=== PATIENT | male | born 1990 | race Two or more races ===

== ENCOUNTER 2025-06-23 18:01 | Emergency (ER) | payer MEDICAID, OTHER ==
[~2025-06-23] VITALS: Ht 188 cm; Wt 97.5 kg
[2025-06-23] MEDS ORDERED: CALCIUM CHLOR(10%) 100MG/ML 10ML SYRINGE IV ONE (18:02)
[2025-06-23] MEDS ORDERED: SODIUM BICARB 8.4% 50Meq/50ml SYR INJ IV ONE (18:02)
[2025-06-23] MEDS ORDERED: EPINEPHrine HCL 1 MG/10 ML SYRG IV ONE (18:02)
[2025-06-23 18:03] VITALS: PULSE 64; RESP 16
[2025-06-23] MEDS ORDERED: PROPOFOL 100 ML IV ONE (18:14)
[2025-06-23] MEDS: NOREPINEPHRINE 8 MG/250ML KIT 250 ML IV SCH (18:15)
[2025-06-23] MEDS ORDERED: SODIUM CHLORIDE 0.9% 1,000 ML IVB ONE (18:15)
[2025-06-23] MEDS ORDERED: PANTOPRAZOLE 40 MG/10 ML VIAL INJ IV ONE (18:15)
[2025-06-23] MEDS ORDERED: PANTOPRAZOLE 40mg/50ML NS AE 50 ML IV ONE (18:15)
[2025-06-23] MEDS ORDERED: PROPOFOL 100 ML IV SCH (18:15)
--- NOTE | 2025-06-23 18:17 | ED.PDOC ---
CPR-HPI HPI Comments 35-year-old male came to ER via EMS in cardiac arrest. Per EMS patient has seen normal by family members 20 minutes prior to their arrival. Patient was found unresponsive lying on the bedroom floor, covered with coffee-ground emesis. Patient unresponsive in asystole the entire time. Patient was given 4 rounds of epinephrine, IO fluids, CPR initiated and rushed to the ER. Family members were poor informants and no medical history could be obtained. Chief Complaint: CPR Time Seen by MD: 18:16 Reviewed Notes: Trimming Department Blocker Notes Allergies: Coded Allergies: UNOBTAINABLE (Unverified , 06/23/25) Information Source: Emergency Med Personnel Mode of Arrival: EMS Timing: Minutes Duration: Down time prior EMS: (20 minutes) Past Medical History PAST MEDICAL HISTORY: Unobtainable Surgical History: Unobtainable Family History Family History: Unobtainable Social History Smoker: Unobtainable Alcohol: Unobtainable Drugs: Unobtainable Lives In: Home Unable to Obtain due to: Medical Urgency Physical Exam General Appearance: Severe Distress, Other (Patient jaundiced) HEENT: Head (nl), Other (pupils fixed and dilated) Neck: Non-Tender, Supple Respiratory: Crackles, Other (no spontaneous respirations) Cardiovascular: Other (no palpable pulses, no auscultated pulses) Breast Exam: None Gastrointestinal: Soft, Other (obese) Genitalia: Normal Pelvic: None Rectal: Black stool, Other (black vomit) Extremities: Other (cool, dry) Neurologic: None, Other (no gag reflex, no blink reflex) Cerebellar Function: Other, NOT DONE Reflexes: None Skin: Dry, Other (cool) Lymphatic: NOT DONE Was a procedure done? Was a procedure done?: Yes Sedation Sedation?: Yes Informed consent obtained: Yes Sedation start time: 18:10 Sedation end time: 19:23 Sedation total time: 1 hour Central Line Recorder of insertion practice: Observer Occupation of grounding engineer: Attending Physician Indication: Hypotension, Volume resuscitation, Inability to obtain IV, Suspected infection Room prepared for procedure: Yes Spring Forger performed hand hygien: Yes Maximal sterile barrier precau: Mask/Eye shield, Sterile gown, Cap, Sterlie gloves, Large sterlie drape Skin Preparation: Providine iodine Skin preparation completely dr: Yes Insertion site: Right, Internal jugular Central line catheter type: Tunneled- not dialysis Number of lumens: 3 Central line exchanged over a: Yes Antiseptic ointment applied to: Yes Post Assessment: Chest X-Ray Informed consent obtained: No Risks/benefits/alt described: No Intubation Indication: Airway Protection Prep: Preoxygenation Pretreated with: Nothing Medicated with: Nothing Intubation Approach: Orotracheal Intubation size: cm (7.5) Informed consent obtained: No Risks/benefits/alt described: No Differential Dx CPR Differential Diagnosis: Cardiopulmonary arrest, Cardiac Tamponade, Cardiogenic shock, Dysrhythmia, Electrolyte disorder, Heart Block, Myocardial Infarction, Pneumothorax, Pulmonary Embolus, Respiratory Failure, Ruptured Aortic Aneurysm, Other (GI bleed) X-Ray, Labs, Meds, VS Vital Signs Date Time Temp Pulse Resp B/P (MAP) Pulse Ox O2 Delivery O2 Flow Rate FiO2 06/23/25 20:00 Ambu-Bag 06/23/25 19:00 52 18 79/37 (51) 0 06/23/25 19:00 79/37 06/23/25 19:00 79/37 06/23/25 18:54 93.2 70 24 46/24 92 60.0 100 93.2 06/23/25 18:45 63 14 74/29 (44) 0 06/23/25 18:33 70 24 46/24 (31) 96 100 06/23/25 18:33 75/48 06/23/25 18:30 53 21 66/44 (51) 0 06/23/25 18:15 51/29 06/23/25 18:15 93.2 93.2 06/23/25 18:11 77 06/23/25 18:08 93.6 64 0 151/109 (123) 0 93.6 06/23/25 18:03 64 16 Mechanical Ventilator+ 100 100 Lab Test 06/23/25 19:14 06/23/25 18:10 Range/Units Troponin I High Sensitivity 31 44 </=54 ng/L White Blood Count 40.9 *H 4.4-10.8 10^3/uL Red Blood Count 2.76 L 4.5-5.90 10^6/uL Hemoglobin 8.7 L 13.5-17.5 g/dL Hematocrit 30.9 L 41.0-53.0 % Mean Corpuscular Volume 111.8 H 80.0-100.0 fL Mean Corpuscular Hemoglobin 31.3 28.0-32.0 pg Mean Corpuscular Hemoglobin Concent 28.0 L 32.0-36.0 g/dL Red Cell Distribution Width 22.7 H 11.8-14.3 % Platelet Count 75 L 140-450 10^3/uL Mean Platelet Volume 10.6 6.9-10.8 fL Neutrophils (%) (Auto) 37.0-80.0 % Lymphocytes (%) (Auto) 10.0-50.0 % Monocytes (%) (Auto) 0.0-12.0 % Basophils (%) (Auto) 0.0-2.0 % Neutrophils # (Auto) 1.6-8.6 10 ^3/uL Lymphocytes # (Auto) 0.4-5.4 10 ^3/uL Monocytes # (Auto) 0-1.3 10 ^3/uL Differential Total Cells Counted 100.0 100 Neutrophils % (Manual) 32 L 37.0-80.0 Band Neutrophils % (Manual) 35 Lymphocytes % (Manual) 16 10.0-50.0 Monocytes % (Manual) 6 0-12 Eosinophils % (Manual) 3 0-7 Basophils % (Manual) 0 0.0-2.0 Metamyelocytes % (manual) 5 Myelocytes % (Manual) 3 Promyelocytes % (Manual) 0 Blast Cells % (Manual) 0 Nucleated Red Blood Cells 2.0 % Reactive Lymphocytes 0 Platelet Estimate Decrea Large Platelets Few Polychromasia Slight Anisocytosis (manual) Slight Macrocytosis Moderate Darlin Cells Moderate Schistocytes Few Prothrombin Time 45.6 H 9.3-11.8 sec Prothrombin Time INR 5.05 *H 0.9-1.15 Activated Partial Thromboplast Time > 139.0 *H 24.5-34.5 SEC Sodium Level 114 *L 136-145 mmol/L Potassium Level 6.9 *H 3.5-5.1 mmol/L Chloride Level 81 L 98-107 mmol/L Carbon Dioxide Level < 10 *L 20-31 mmol/L Anion Gap 23.12606 H 5-15 Blood Urea Nitrogen 58 H 9-23 mg/dL Creatinine 3.73 H 0.700-1.30 mg/dL Glomerular Filtration Rate Calc 21 >90 mL/min BUN/Creatinine Ratio 15.5 10.0-20.0 Serum Glucose 212 H 74-106 mg/dL Lactic Acid Level 21.5 *H 0.4-2.0 mmol/L Calcium Level 7.4 L 8.7-10.4 mg/dL Total Bilirubin 10.3 H 0.2-1.0 mg/dL Aspartate Amino Transferase (AST) 649 H 13-40 U/L Alanine Aminotransferase (ALT) 133 H 7-40 U/L Alkaline Phosphatase 428 H 46-116 U/L Total Protein 4.5 L 5.7-8.2 g/dL Albumin 1.7 L 3.2-4.8 g/dL Lipase 183 H 12-53 U/L Current Medications Medications (Trade) Dose Ordered Sig/Lida Route Start Time Stop Time Status Last Admin Midazolam HCl 100 ml @ 1 mls/hr Q24H IV 06/23/25 20:00 06/23/25 18:33 Norepinephrine Bitartrate 250 ml @ 3.75 mls/hr Q24H IV 06/23/25 20:00 06/23/25 18:15 Time of 1ST Reevaluation: 18:12 Reevaluation 1ST: Unchanged Patient Education/Counseling: Pt Unresponsive Family Education/Counseling: No Family Present SEPSIS Sepsis Screen Physician Orders Troponin-I Hs (06/24/25 00:00) Troponin-I Hs (06/24/25 03:00) Troponin-I Hs (06/24/25 06:00) Blood Culture (06/23/25 18:10) Electrocardigram (06/23/25 18:10) Pantoprazole 40mg/50ml Ns Ae (Protonix) (06/23/25 18:15) Propofol (Diprivan) (06/23/25 18:15) Rass Sedation Scale Q1HR (06/23/25 18:13) Ventilator Orders (06/23/25 18:19) Respiratory Culture W/ Gs (06/23/25 18:19) Abg W/ Co-Ox (06/23/25 19:30) Epinephrine Hcl (06/23/25 19:15) Sodium Chloride 0.9% (06/23/25 19:15) Piperacillin-Tazob 3.375gm (Zosyn 3.375g (06/23/25 19:15) Epinephrine Hcl (06/23/25 19:13) Midazolam Drip 100 Mg/100ml Ns (Versed D (06/23/25 20:00) Norepinephrine 8 Mg/250ml Kit (Levophed) (06/23/25 20:00) Communication Order (06/23/25 19:54) Insert Johnson Catheter QSHIFT (06/23/25 20:04) Ngt/Ogt (06/23/25 ) Atropine Adult Syr 0.1mg/Ml (Atropine Dawkins (06/23/25 20:15) Vital Signs Date Time Temp Pulse Resp B/P (MAP) Pulse Ox O2 Delivery O2 Flow Rate FiO2 06/23/25 20:00 Ambu-Bag 06/23/25 19:00 52 18 79/37 (51) 0 06/23/25 19:00 79/37 06/23/25 19:00 79/37 06/23/25 18:54 93.2 70 24 46/24 92 60.0 100 93.2 06/23/25 18:45 63 14 74/29 (44) 0 06/23/25 18:33 70 24 46/24 (31) 96 100 06/23/25 18:33 75/48 06/23/25 18:30 53 21 66/44 (51) 0 06/23/25 18:15 51/29 06/23/25 18:15 93.2 93.2 06/23/25 18:11 77 06/23/25 18:08 93.6 64 0 151/109 (123) 0 93.6 06/23/25 18:03 64 16 Mechanical Ventilator+ 100 100 Laboratory Tests Test 06/23/25 18:10 Lactic Acid Level 21.5 mmol/L (0.4-2.0) *H White Blood Count 40.9 10^3/uL (4.4-10.8) *H Medications Medications Dose Ordered Sig/Lida Route Start Time Stop Time Status Last Admin Dose Admin Midazolam HCl 100 ml @ 1 mls/hr Q24H IV 06/23/25 20:00 06/23/25 18:33 Norepinephrine Bitartrate 250 ml @ 3.75 mls/hr Q24H IV 06/23/25 20:00 06/23/25 18:15 Departure 1 Departure Time of Disposition: 19:23 Impression: Primary Impression: Cardiopulmonary arrest Additional Impression: GI bleed Disposition: 20 Condition: Other () Comments Patient was intubated on arrival. CPR in progress. CPR continued. Given ACLS medications. Patient achieved return of spontaneous circulation for about an hour. I placed a triple lumen central line, started pressors, ordered IV blood transfusion and IV antibiotics and IV protonix drip. Patient lost pulses again. CPR and ACLS measures unsuccessful. patient was declared at 1922 according to the wishes of the family at bedside. Critical Care Note Critical Care Time?: Yes (35 min-critical care time only) Critical care comment: Total critical care time: Approximately 46 minutes Due to a high probability of clinically significant, life threatening deterioration, the patient required my highest level of preparedness to intervene emergently and I personally spent this critical care time directly and personally managing the patient. This critical care time included obtaining a history; examining the patient; pulse oximetry; ordering and review of studies; arranging urgent treatment with development of a management plan; evaluation of patient's response to treatment; frequent reassessment; and, discussions with other providers. This critical care time was performed to assess and manage the high probability of imminent, life-threatening deterioration that could result in multi-organ failure. It was exclusive of separately billable procedures and treating other patients. Heart Score Heart Score: Heart Score Response (Comments) Value History N/A 0 EKG N/A 0 Age N/A 0 Risk Factors N/A 0 Troponin N/A 0 Total 0 Stability Stability form required: No I personally scribed for GABRIELA PAYAN MD (AMY) on 06/23/25 at 18:17. Electronically submitted by Federico German (DEE DEE). I personally scribed for GABRIELA PAYAN MD (AMY) on 06/23/25 at 18:41. Electronically submitted by Federico German (DEE DEE). GABRIELA PAYAN MD Jun 23, 2025 18:17
[2025-06-23] MEDS ORDERED: NOREPINEPHRINE 8 MG/250ML KIT 250 ML IV ONE (18:18)
[2025-06-23] MEDS: ATROPINE SULF 1 MG/10ml SYR IV ONE (18:20)
[2025-06-23] MEDS ORDERED: MIDAZOLAM DRIP 100 mg/100mL NS 100 ML IV ONE (18:21)
[2025-06-23 18:33] LABS: Hemoglobin 8.7 g/dL (13.5-17.5)
[2025-06-23] MEDS: MIDAZOLAM DRIP 100 mg/100mL NS 100 ML IV SCH (18:33)
[2025-06-23 18:35] LABS: Hematocrit 30.9 % (41.0-53.0); Mean Corpuscular Hemoglobin 31.3 pg (28.0-32.0); Mean Corpuscular Volume 111.8 fL (80.0-100.0)
[2025-06-23 18:50] LABS: Anion Gap 23.00001 (5-15)
[2025-06-23 18:54] VITALS: BP 46/24; PULSE 70; RESP 24; TEMP 93.2; O2SAT 92
[2025-06-23 19:00] VITALS: BP 79/37; PULSE 52; RESP 18; O2SAT 0
[2025-06-23 19:00] LABS: BUN/Creatinine Ratio 15.5 (10.0-20.0)
[2025-06-23 19:03] LABS: Alanine Aminotransferase 133 U/L (7-40); Albumin 1.7 g/dL (3.2-4.8); Alkaline Phosphatase 428 U/L (46-116); Bilirubin, Total 10.3 mg/dL (0.2-1.0); Blood Urea Nitrogen 58 mg/dL (9-23); Calcium 7.4 mg/dL (8.7-10.4); Chloride 81 mmol/L (98-107); Glucose 212 mg/dL (74-106); Lipase 183 U/L (12-53)
[2025-06-23 19:04] LABS: Carbon Dioxide < 10 mmol/L (20-31); Potassium 6.9 mmol/L (3.5-5.1); Sodium 114 mmol/L (136-145)
[2025-06-23 19:05] LABS: Total Protein 4.5 g/dL (5.7-8.2)
[2025-06-23 19:06] LABS: Lactic Acid w/Reflex 21.5 mmol/L (0.4-2.0)
[2025-06-23] MEDS ORDERED: EPINEPHrine HCL 1 MG/10 ML SYRG ONE (19:12)
[2025-06-23 19:13] LABS: Macrocytosis Moderate; Nucleated Red Blood Cells % 2.0 %; Total Cells Counted 100.0 (100)
[2025-06-23] MEDS ORDERED: EPINEPHrine HCL 250 ML IV ONE ×2 (19:13→19:15)
[2025-06-23 19:14] LABS: Anisocytosis Slight; Polychromasia Slight
[2025-06-23] MEDS ORDERED: PIPERACILLIN-TAZOB 3.375GM 100 ML IV ONE (19:15)
[2025-06-23] MEDS ORDERED: EPINEPHrine HCL 250 ML IV SCH (19:15)
[2025-06-23] MEDS ORDERED: SODIUM CHLORIDE 0.9% 2,450 ML IV ONE (19:15)
[2025-06-23 19:50] LABS: Prothrombin Time 45.6 sec (9.3-11.8)
[2025-06-23 19:59] LABS: INR 5.05 (0.9-1.15); Partial Thromboplastin Time > 139.0 SEC (24.5-34.5)
--- NOTE | 2025-06-23 20:00 | RESUS ---
IVIS HURST ASSESSSMENT History of Events History of Events: secured ivis hurst arrived at 1801 with automatic compression device, I/O to left tibia, i-gel airway and 4 rounds of epinephrine given with aystole each pulse check Initial Information Date: Jun 23, 2025 Time: 18:01 Location of Arrest: home Arrest Witnessed: No CPR started by whom: EMS Last seen well: per EMS family stated he was last seen well 20 mins prior to the call Pre-Hospital Care: ACLS Type of arrest: Cardiac, Adult, Unwitnessed Spontaneous Respirations: No Pulse Present: Yes Monitoring: ECG, Pulse Oximetry Crash Cart Opened and Supplies: Yes Airway Ventilation Breathing at Onset: Assisted Oxygen Delivery Method: Ambu-Bag Artificial Ventilation: Bag/Mask Intubation Time: 18:05 Intubation Size: 8.0 cuffed Intubated by: Brooks GUSTAFSON Intubation Attempts: 1 Intubated orally: Yes Tube secured at: 24 CO2 indicator used: Yes Confirmation: Auscultation, Exhaled CO2 Circulation Circulation #1: Time: 18:02 Circulation Comment: AYSTOLE Circulation #2: Time: 18:04 Circulation Comment: ASYSTOLE Circulation #3: Time: 18:06 Pulse Rate (adult): 44 Blood Pressure Systolic: 151 Blood Pressure Diastolic: 109 Temperature (Fahrenheit): 93.2 Circulation Comment: TEMP RECTAL, ROSC Procedure - IV Procedure - IV : IV start time: 18:04 IV Side: Left IV Location: Antecubital IV Catheter Type: Peripheral IV IV Placed: RN IV Gauge: 20 Procedure - Intraosseous Intraosseous inserted by: EMS Medications & Response Medications and Responses #1: Medication Time: 18:03 ADULT Medications Given ADULT: Epinephrine 1 mg Route of Administration: IO Medications and Responses #2: ADULT Medications Given ADULT: D50 (amp) Route of Administration: IO Medication Comment: BLOOD GLUCOSE 26, REPEAT 309 AFTER AMP OF D50 Nurses Notes [place] Coma Scale Eye Opening: None (1) [place] Coma Scale Verbal: None (1) [place] Coma Scale Motor: None (1) Pupil Reaction: Non Reactive Time Code Ended Post Arrest Status: Ventilated Outcome of code: Successful Code Team Present: GREY GONZALEZ TRAINING EXECUTIVE, LUKASZ PELAYO RN, TRACEY RN, ROXANA RN, NAVARRO RN, VETO RN, BROOKS RT, ROSETTE RT, AR INTERLOCKING AND SIGNAL MECHANIC, SARAAMMED INTERLOCKING AND SIGNAL MECHANIC Post Resuscitation Neurologica Pupil Size: 10 ROSC Time of ROSC: 18:06 Pt Meets Criteria for Therapeu: Grey Back Jun 23, 2025 20:00
--- NOTE | 2025-06-23 21:53 | RESUS ---
CODE BLUE ASSESSSMENT History of Events History of Events: 35-year-old male came to ER via EMS in cardiac arrest. Per EMS patient has seen normal by family members 20 minutes prior to their arrival. Patient was found unresponsive lying on the bedroom floor, covered with coffee-ground emesis. Rosc obtained prior, now no pulse Initial Information Date: Jun 23, 2025 Time: 19:07 Location of Arrest: ER Arrest Witnessed: Yes CPR started initial time: 19:07 CPR started by whom: Hospital Staff Pre-Hospital Care: ACLS Type of arrest: Cardiac, Respiratory, Adult, Witnessed Spontaneous Respirations: No Pulse Present: No Monitoring: ECG, Pulse Oximetry, Capnography, Telemetry Crash Cart Opened and Supplies: Yes Airway Ventilation Breathing at Onset: Apneic O2 Sat by Pulse Oximetry: 0 Oxygen Delivery Method: Mechanical Ventilator Comments: pt intubated during previous code Circulation Circulation : Time: 19:06 Pulse Rate (adult): 0 Blood Pressure Systolic: 0 Blood Pressure Diastolic: 0 Procedure - IV Procedure - IV : Comment see previous code Procedure - Intraosseous Comment: prior to code Medications & Response Medications and Responses #1: Medication Time: 19:07 ADULT Medications Given ADULT: Epinephrine 1 mg, Sodium Bacarbinate 50 meq, Calcium Chloride 10 mL Route of Administration: IV Heart Rate: 0 EKG Rhythm: PEA Blood Pressure Systolic: 0 Blood Pressure Diastolic: 0 Respiratory Rate: 0 O2 Sat by Pulse Oximetry: 0 EKG Rhythm: PEA Comment 1908 no pulse Medications and Responses #2: Medication Time: 19:09 ADULT Medications Given ADULT: Epinephrine 1 mg Route of Administration: IV Heart Rate: 0 EKG Rhythm: PEA Blood Pressure Systolic: 0 Blood Pressure Diastolic: 0 Respiratory Rate: 0 O2 Sat by Pulse Oximetry: 0 EKG Rhythm: PEA Comment pulse check 1910 ROSC BP 95/10 HR 117 SAT 100%. 1912 PT LOST PULSES Medications and Responses #3: Medication Time: 19:13 ADULT Medications Given ADULT: Epinephrine 1 mg, Sodium Bacarbinate 50 meq Route of Administration: IV Heart Rate: 0 Blood Pressure Systolic: 0 Blood Pressure Diastolic: 0 Respiratory Rate: 0 O2 Sat by Pulse Oximetry: 0 EKG Rhythm: PEA Comment PULSE CHECK AT 1914 NO PULSE Medications and Responses #4: Medication Time: 19:15 ADULT Medications Given ADULT: Epinephrine 1 mg Route of Administration: IV Heart Rate: 0 EKG Rhythm: PEA Blood Pressure Systolic: 0 Blood Pressure Diastolic: 0 Respiratory Rate: 0 O2 Sat by Pulse Oximetry: 0 EKG Rhythm: PEA Comment NO PULSE 2017 Medications and Responses #5: Medication Time: 20:17 ADULT Medications Given ADULT: Epinephrine 1 mg Route of Administration: IV Heart Rate: 0 EKG Rhythm: PEA Blood Pressure Systolic: 0 Blood Pressure Diastolic: 0 Respiratory Rate: 0 O2 Sat by Pulse Oximetry: 0 EKG Rhythm: PEA Comment 2018 NO PULSE Medications and Responses #6: Medication Time: 21:19 ADULT Medications Given ADULT: Epinephrine 1 mg Route of Administration: IV Heart Rate: 0 EKG Rhythm: PEA Blood Pressure Systolic: 0 Blood Pressure Diastolic: 0 Respiratory Rate: 0 O2 Sat by Pulse Oximetry: 0 EKG Rhythm: PEA Comment 1920 NO PULSE Medications and Responses #7: Medication Time: 19:21 ADULT Medications Given ADULT: Epinephrine 1 mg Route of Administration: IV Heart Rate: 0 EKG Rhythm: PEA Blood Pressure Systolic: 0 Blood Pressure Diastolic: 0 Respiratory Rate: 0 O2 Sat by Pulse Oximetry: 0 EKG Rhythm: PEA Comment 2122 NO PULSE FAMILY REQUESTED TO STOP RESUSCITATION EFFORT. TOD 1922 Pacing Pacer Pads Applied and Pacing: Yes Nurses Notes [place] Coma Scale Eye Opening: None (1) [place] Coma Scale Verbal: None (1) [place] Coma Scale Motor: None (1) [place] Total: 3 Pupil Reaction: Non Reactive Time Code Ended Time Code Ended: 19:23 Post Arrest Status: Outcome of code: Unsuccessful Patient pronounced by: DR. PAYAN Time patient pronounced: 19:23 Family notified: Yes Attending called: Yes Code Team Present: MELISSA GONZALEZ CHARGE, DESI RN, ROSI RN, LOPEZ RN, SATINDER RN, NAVARRO RN, TAMI RN,AR ERT, DEIDRA ERT, IRASEMA ERT,ROSETTE RT, MATT RT Post Resuscitation Neurologica Pupil Size: 4 Comment: MELISSA HOLLINS Jun 23, 2025 21:53
--- NOTE | 2025-06-24 04:30 | ECG ---
[facility] Test Date: 2025-06-23 Test Time: 18:11:55 Pat Name: ZHANNA BROWNING Department: ED Room: Gender: M [employer] Farmer: mo : 1990 Requested By: GABRIELA PAYAN Order Number: [id number] Reading MD: Oli Muhammad Measurements Intervals [place] Rate: 77 P: 0 MS: 0 QRS: 32 QRSD: 129 T: -19 QT: 504 QTc: 571 Interpretive Statements Atrial fibrillation Nonspecific intraventricular conduction delay Repol abnrm, severe global ischemia (LM/MVD) Electronically Signed On 06-28-2025 8:33:55 PST by Oli Muhammad Please click the below link to view image of tracing.
== END 2025-06-23 19:23 ==
LOC: ER 18:01 → EDBD 18:01 → ER 19:23
DX: I46.9 Cardiac arrest, cause unspecified (principal); K92.2 Gastrointestinal hemorrhage, unspecified; F17.200 Nicotine dependence, unspecified, uncomplicated; Z79.899 Other long term (current) drug therapy
CPT/HCPCS: 31500; 36415; 36558; 80053; 82947; 83605; 83690; 84484; 85007; 85027; 85610; 85730; 86850; 86900; 86901; 87040; 87070; 87077; 87186; 87205; 92950; 93005; 99291; J0169; J2704; 36600; 82805